=== PATIENT | male | born 1990 | race Caucasian/White ===

== ENCOUNTER 2022-06-14 08:36 | Emergency (ER) | payer OTHER, BC, SELFPAY ==
[2022-06-14 08:43] VITALS: BP 134/65; PULSE 85; RESP 18; TEMP 36.6; O2SAT 97; BMI 31.6
--- NOTE | 2022-06-14 09:01 | ED.WOUNDLAC ---
HPI - Wound/Laceration General Chief Complaint: Laceration/Wound Stated Complaint: Needs stitches in thumb Time Seen by Provider: 06/14/22 08:50 History of Present Illness HPI narrative: This patient comes in with a laceration to his left thumb. He was using a utility type knife and accidentally cut his thumb at home. He has a 2 cm linear laceration across the dorsal aspect of the left thumb. There is no sign of tendon dysfunction or nerve dysfunction. He states that he is not up-to-date on his tetanus vaccination. Related Data Allergies Allergy/AdvReac Type Severity Reaction Status Date / Time No Known Drug Allergies Allergy Verified 06/14/22 08:42 Review of Systems Status of ROS: Reports: 10 or more systems reviewed and unremarkable except as noted in History and below Narrative: Constitutional: No fevers, no weight gain or loss. Eyes: No discharge. No vision changes. HENT: No congestion, no sore throat, no ear pain. Cardiovascular: No chest pain, no palpitations. Respiratory: No shortness of breath, no wheezes, no cough. Gastrointestinal: No abdominal pain, no vomiting, no diarrhea. Genitourinary: No dysuria, no hematuria. Musculoskeletal: Normal range of motion. Skin: No rashes, no pruritis. Left thumb laceration as described above. Neurological: No dizziness, weakness, sensory change, speech change. Endo/Heme/Allergies: No bruising or bleeding. No polydipsia. Pysch: no suicidality, no anxiety, no insomnia. All other systems reviewed and are negative. Exam Narrative: Exam Narrative: Constitutional: Well-developed, well-nourished, no acute distress. HEENT: Normocephalic, atraumatic. Neck: Normal range of motion. Nontender. Supple. Heart: Intact distal pulses. Lungs: No chest discomfort. No wheezes, rhonchi, or rales. Abdomen: Nontender. Back: Normal range of motion. Extremities: Normal range of motion. 2 cm linear laceration across the dorsal aspect of the midportion of the left thumb. Skin: Intact. No rash. Warm. No erythema or pallor. Neurologic: No altered sensation. No weakness. Alert and oriented. Psychiatric: No suicidality. No anxiety or depression. No insomnia. Nursing notes and vitals signs are reviewed. Const: Vital Signs, click to edit/add: Vital Signs - 24 hr 06/14/22 08:43 Temperature 98 F Pulse Rate [Pulse Oximeter] 85 Respiratory Rate 18 Blood Pressure [Ri ght Forearm] 134/65 Pulse Oximetry 97 Oxygen Delivery Me thod Room Air Course Vital Signs Vital signs: Initial Vital Signs Temperature 98 F 06/14/22 08:43 Temperature Source Temporal Artery Scan 06/14/22 08:43 Pulse Rate 85 06/14/22 08:43 Pulse Rhythm 06/14/22 08:43 Respiratory Rate 18 06/14/22 08:43 Blood Pressure 134/65 06/14/22 08:43 Blood Pressure Mean 88 06/14/22 08:43 Blood Pressure Position Sitting 06/14/22 08:43 Pulse Oximetry 97 06/14/22 08:43 Oxygen Delivery Method 06/14/22 08:43 Vital Signs Temperature 98 F 06/14/22 08:43 Pulse Rate 85 06/14/22 08:43 Respiratory Rate 18 06/14/22 08:43 Blood Pressure 134/65 06/14/22 08:43 Pulse Oximetry 97 06/14/22 08:43 Oxygen Delivery Method 06/14/22 08:43 Temperature 98 F 06/14/22 08:43 Pulse Rate 85 06/14/22 08:43 Respiratory Rate 18 06/14/22 08:43 Blood Pressure 134/65 06/14/22 08:43 Pulse Oximetry 97 06/14/22 08:43 Oxygen Delivery Method 06/14/22 08:43 MDM - Wound/Laceration MDM Narrative Medical decision making narrative: This wound was cleansed and explored to its base. I discussed wound repair options including Dermabond and suture repair. The patient elected to have Dermabond applied. This was done with excellent results. A Band-Aid was applied followed by some Bonnie to splint the thumb somewhat while the wound heals. He received a tetanus vaccination. Discharge Plan Discharge Clinical Impression: Laceration Patient Disposition: Home, Self-Care Condition: Stable Additional Instructions: Keep wound clean and dry. Increase activity as tolerated. Follow up with MD or return if worsening. Stand Alone Forms: [facility] Info Instructions
[2022-06-14] MEDS: TETANUS/DIPHTH/PERTUSSIS 0.5 ML SYRINGE IM (09:14)
== END 2022-06-14 10:48 | disposition home or self-care (01) ==
PROVIDERS: Emergency Provider Emergency Medicine Emergency Medical Services
DX: S61.012A Laceration without foreign body of left thumb without damage to nail, initial encounter (principal); W26.0XXA Contact with knife, initial encounter
CPT/HCPCS: 12001; 90471; 90715; 99283

== ENCOUNTER 2023-07-27 11:40 | Outpatient (CLI) | payer OTHER, SELFPAY ==
--- OUTSIDE RECORDS SUMMARY | 2023-07-27 11:44 | XMS_ITS | Encounter Summary ---
Author Name Unknown Organization [facility] Address [address] [place] [address] Care Team Providers Care Asphalt Dauber Name Role Phone Unavailable Primary Care Provider Unavailabl e Reason for Visit * Reason Comments Hip Problem Encounter Details Date Type Department Care Team Description 04/24/2023 9:30 AM CDT Therapy [facility] [address] [id number] Estela Prince, PT [address] [place] [address] Muscle strain of gluteal region, left, initial encounter (Primary Dx); Impingement of left shoulder Social History Tobacco Use Types Packs/Day Years Used Date Smoking Tobacco: Never Smokeless Tobacco: Never Sex and Gender Information Value Date Recorded Sex Assigned at Not on file Gender Identity Not on file Sexual Orientation Not on file documented as of this encounter Progress Notes * Estela Prince, PT - 04/24/2023 9:30 AM CDT [facility] Physical Therapy Progress Note Visit Number: 4 Initial Certification Period: 02/12/2023 to 05/13/23 Referring Provider: No ref. provider found Visit Diagnosis: 1. Muscle strain of gluteal region, left, initial encounter 2. Impingement of left shoulder Precautions: none SUBJECTIVE: Pretty decent. His L HS is bothering him. That muscle QL on the L is bothering him again, just above his hip area. His L shoulder . He has been doing a bit more work at work lately. More heavy stuff and motors, busy busy busy. He has been slacking with his HEP, tries to stretch as much as he can. His leg stretches he has been doing still. OBJECTIVE Current Objective Findings: Flexibility: Hamstrings: Restricted Joint Mobility: WNL Palpation/Tenderness: Left quadratus lumborum, gluteus sulema, piriformis, L >R gluteus medius,greater trochanter, L >R hamstring Special Tests: Left: NICANOR: WNL FADIR: Negative SLR: Positive for hamstring tightness at ~75 degrees Right: INCANOR: WNL FADIR: Negative SLR: Positive for hamstring tightness at ~65 degrees Standing trunk flexion fingertips to distal tibia Standing extension mild loss with pinch at L5 Mild loss R SB with tightness/discomfort on L side R SB WNL Treatment/Education Today: Therapeutic exercise x 23 minutes: -assessment as above -review of HEP -QL stretch [id number] -cat/cow x10 -birddog x10 -3 way child's pose Dry needling x 16minutes: -Pt was educated on the potential benefits and risk of procedure and provided aftercare instructions -Verbal informed consent obtained. -Pt skin was prepped with use of alcohols swab -Pt was position in prone with palpation and activation used to identify the taut banding in L QL and glute max, musculature -deep palpation was used to isolate banding -direct technique was performed, using 75mm needle in a perpendicular direction, 1 needles used. -Localized muscle twitch was achieved with dry needling -Pt was position in prone with palpation and activation used to identify the taut banding in L QL and glute max, musculature -deep palpation was used to isolate banding, L shoulder: L upper trap, L supraspinatus, L infraspinatus, and teres mm -direct technique was performed, using 50mm needle in a perpendicular direction, 1 needles used. - L shoulder: L upper trap, L supraspinatus, L infraspinatus, and teres mm -Localized muscle twitch was achieved with dry needling *post tx: HS B 80 degrees no pain Standing extension WNL no pain Timed Code Treatment Minutes: 23 Total Treatment Minutes: 39 Current Home Exercise Program List: Access Code: [email or web address] URL: [email or web address] Date: 02/13/2023 Prepared by: Estela Prince Exercises - Cat Cow - 1-2 x daily - 20-30 reps - Supine Quadratus Lumborum Stretch - 1-2 x daily - 3 reps - 30sec hold - Supine Hamstring Stretch - 1-2 x daily - 3 reps - 30sec hold - Supine Bridge with Resistance Band - 1 x daily - 3 sets - 10 reps - Seated Scapular Retraction - 1-3 x daily - 20 reps - Shoulder External Rotation and Scapular Retraction with Resistance - 1 x daily - 10-20 reps - 10sec hold ASSESSMENT/PROGRESS TOWARD GOALS: Pt is a pleasant 32yo male with chronic L shoulder/neck and hip pain of unknown etiology. Pt felt great after last session, increased pain in L shoulder and hip after increased heavy work at work lately. Performed FDN and tolerated well with improved ROM after. Continue with HEP daily. Pt will benefit from skilled PT to address above limitations and improve overall pain, strength, posture and functional mobility. Functional Goals/Outcomes: HEP/Independent Management: Demonstrate independence with HEP and self- management following each treatment session Demonstrate correct posture and body mechanics without verbal cueing in 1 session. ADL's: Resume previous sleep pattern without awakening due to symptoms in 12 weeks. Transition sit to stand with normal positioning and weight bearing in 8 weeks. 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 side in 12 weeks PLAN: Dry needling, review and progress HEP documented in this encounter Plan of Treatment Upcoming Encounters Date Type Department Care Team Description 07/31/2023 9:30 AM REHAB RN Appointment [facility] [address] [address] Estela Prince, PT [address] [place], [place] [address] 08/07/2023 9:30 AM REHAB RN Appointment [facility] [address] [address] Estela Prince PT [address] [place], [place] [id number] 08/14/2023 9:30 AM REHAB RN Appointment [facility] [address] [address] [place] [address] Estela Prince, PT [address] [place] [address] 08/21/2023 9:30 AM REHAB RN Appointment [facility] [address] [address] Estela Prince, PT [address] [place], [place] [phone] documented as of this encounter Visit Diagnoses Diagnosis Muscle strain of gluteal region, left, initial encounter- Primary Impingement of left shoulder documented in this encounter
--- OUTSIDE RECORDS SUMMARY | 2023-07-27 11:44 | XMS_ITS | Encounter Summary ---
Author Name Unknown Organization [facility] Address [address] [place] [address] Care Team Providers Care Plant Science Professor Name Role Phone Unavailable Primary Care Provider Unavailabl e Reason for Referral * Therapies (Routine) - New Request Specialty Diagnoses / Procedures Referred By Bela t Referred To Contact Diagnoses Muscle strain of gluteal region, left, initial encounter Impingement of left shoulder [facility] [address] [place] [address] Referral ID Status Reason Start Date Expiration Date V isits Requested Visits Authorized [id number] New Request 02/13/2023 05/14/2024 1 1 Scheduling Instructions If scheduling assistance is needed, please inquire with the medical office staff upon exiting your appointment or contact the ordering clinic for recommended locations. This recommended service/s may not be covered by your insurance coverage. To find out your specific benefit coverage, please call the number on your insurance card. Question Answer Therapy Physical Therapy PT: Follow Up Every week How many times per week? 1 For how many weeks? 6 PT: Visit Type Follow Up PT: Type of Revisit In-Person Visit PT: Treatment Team Primary provider Waitlist? High (Urgent) Comments Ok to put in consult blocks Reason for Visit * Reason Comments Hip Problem * Therapies (Routine) - New Request Specialty Diagnoses / Procedures Referred By Contac t Referred To Contact Diagnoses Strain of gluteus medius of left lower extremity, initial encounter Impingement of left shoulder Janelle Puente, PA-C [address] [facility] [place] [address] Referral ID Status Reason Start Date Expiration Date V isits Requested Visits Authorized [id number] New Request 01/18/2023 01/18/2024 1 1 Encounter Details Date Type Department Care Team Description 02/13/2023 2:45 PM CDT Therapy [facility] [place] [address] [place] [address] Estela Prince, PT [address] [place] [address] Muscle strain of gluteal region, left, initial [...] Progress Notes * Estela Prince, PT - 02/13/2023 2:45 PM CDT [facility] Physical Therapy Hip Evaluation/Plan of Care Initial Certification Period: 02/12/2023 to 05/13/23 Referring Provider: Janelle Puente Visit Diagnosis: 1. Muscle strain of gluteal region, left, initial encounter 2. Impingement of left shoulder Precautions: None Orders: Evaluate & treat, Left shoulder impingement and biceps tendonitis. Iontophoresis. Othermodalities as appropriate. Eval and treat. Left glute medius and minimus chronic strain. Dry needling. Other modalities as appropriate. Eval and treat. Onset/Referral Date: Chronic 10-15 years, REFERRAL 01/18/23 SUBJECTIVE Reason for Visit: His whole L side is bothersome 10-15yrs. He's never been seen for it before. He is R handed. L shoulder and neck, and L back of hip and back of the thigh. His R side does bother himbut the L side is more prominent. NO previous injuries, no MVA. NO previous surgeries. L ankle sprain 1.5 years ago (missed a step). Mornings are the worst, once he starts moving it gets better. Then his mm get tired and then pain gets more. He has tried chrio and massage and that helps a little. Patient Therapy Goals:control and reduce pain. Past Medical History: Patient has no past medical history on file. There is no problem list on file for this patient. Recently Experienced (Red Flags): None Previous Treatment: chiropractic treatment, massage therapy, medications:ibuprofen prn and pain patches, and heated leather seats. Benefited from previous treatment: yes Pain details: Current pain intensity level: 7/10 Pain location: L superior shoulder and neck, L posterior hip and hamstring Sleep interruptions: Yes: a few times per night., Difficulty getting comfortable in order to sleep. 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 He has a 4 and 7yo son. No regular HEP. Patient History: Low Complexity: No personal factors or comorbidities that impact plan of care OBJECTIVE Observation: mild L lateral shift Gait Exam: lacking arm swing and trunk motion, very stiff upper body Screening: Lumbar screen: Screen: Within Normal Limits ROM: Left: normal Right: normal Trunk flexion fingertips to proximal ankles mild tightness in R>L hamstring, extension mild lossend range, SB 90 % B L>R QL pain. Strength: Left: Hip flexion: 4+/5 Flexibility: Hamstrings: Restricted Quadriceps: Normal Piriformis: Restricted QL L>R restricted HS ~45 degrees L<R Joint Mobility: WNL Palpation/Tenderness: Left quadratus lumborum, gluteus sulema, piriformis, L >R gluteus medius,greater trochanter, L >R hamstring Special Tests: Left: NICANOR: WNL FADIR: Negative SLR: Positive for hamstring tightness at ~35 degrees Right: NICANOR: WNL FADIR: Negative SLR: Positive for hamstring tightness at ~45 degrees Functional Tests: Double leg squat: knees over toes, heels off floor Physical Performance Measures: Not tested SHOULDER: ROM: Left Shoulder AROM WNL Right Shoulder AROM WNL Strength: Left Shoulder Flexion: 5/5 Extension: 4+/5 External rotation: 4+/5 Internal rotation: 5/5 Abduction: 5/5 Right Shoulder Flexion: 5/5 Extension: 4+/5 External rotation: 4+/5 Internal rotation: 5/5 Abduction: 4+/5 Neurological: Not performed Flexibility: Upper traps: Restricted, Subscapularis: Restricted, Pectoralis major: Restricted, and Pectoralis minor: Restricted Joint mobility: GH: WNL Thoracic spine: Hypomobile Palpation: Tenderness with palpation to: Left: Upper trap, Supraspinatus, Infraspinatus, Subscapularis, Cervical paraspinals, and Thoracic paraspinals Special Tests: ER Strength for impingement: Positive Functional tests: Hands behind head within normal limits. Hands behind back within normal limits. Hands on opposite shoulders within normal limits. PT - Musculoskeletal - Shoulder QuickDASH (0-100, 0 being best): 20 Clinical Examination: Moderate Complexity: Addressed 3 elements from body structures and functions (see above), and/or functional limitations as noted below. Today's Intervention/Charges: Physical Therapy Evaluation was completed and the patient was educated on the condition, planned therapy intervention and expectations from treatment. Therapeutic exercise x 24 minutes: The patient was guided through a home exercise program, including verbal and tactile cues when appropriate to facilitate good performance and targeted intervention.The purpose and intent of each exercise was explained to the patient, as well as, how to follow thegiven exercise prescription. -Instructed on proper posture and body mechanics. -encouraged to call insurance for coverage of Dry Needling (circled on handout) Access Code: [email or web address] URL: [email or web address] Date: 02/13/2023 Prepared by: Estela Prince Exercises [...] daily - 10-20 reps - 10sec hold Timed Code Treatment Minutes: 25 Total Treatment Minutes: 45 ASSESSMENT Therapist Impression/Summary: Pt is a pleasant 32yo male with chronic L shoulder/neck and hip pain of unknown etiology. Pt has a very labor intensive job, and pain has been progressing. Pt has impaired posture with mild weakness of scap and ER of B shoulders, weakness of proximal hips L>R with significant restriction of hamstrings and QL mm. Pt will benefit from skilled PT to address above limitations and improve overall pain, strength, posture and functional mobility. PT Clinical Presentation: Moderate Complexity: Evolving Clinical Presentation with changing clinical characteristics Clinical Decision Making: Moderate Complexity Recommendations/Equipment: No additional recommendations at this time Significant Impairments: Pain, Muscle tightness/decreased flexibility, Muscle weakness, Muscular imbalances, Joint hypomobility, ROM Limitation, Postural restrictions Functional Limitations: poor body mechanics, difficulty sleeping, and difficulty meeting work demands Goals/Functional Outcomes: HEP/Independent Management: Demonstrate independence with HEP and [...] pain on L side in 12 weeks Barriers to Goal Achievement or Learning: none Prognosis: Good PLAN Planned Intervention/Education: ADL/Self Management, Aquatic therapy, Dry Needling, Education, Electrical Stimulation, Gait training, Heat/ice, Iontophoresis with Dexamethasone Sodium Phosphate 4 mg/mL solution prn with procedure to reduce inflammation. Deliver 1.0mL-1.5mL through iontophoresis patc h to affected area., Manual Therapy, Mechanical Traction, Neuromuscular Re- education, TENS application/self treatment, Therapeutic Activities, Therapeutic Exercise, Ultrasound, Vasopneumatic compression Frequency: 1 x week Duration: 90 days Discharge Plan: Patient will be discharged from therapy when goals are achieved or patient plateausin progress. Informed Consent: Patient and/or family in agreement with the care plan. Plan for Next Treatment: Dry needling, review and progress HEP The dimmer board operator is completed by the therapist and the referring clinician's electronic signature certifies medical necessity for the plan above. documented in this encounter Plan of Treatment Upcoming Encounters Date Type Department Care Team Description 07/31/2023 9:30 AM SENIOR LINUX SYSTEMS ADMINISTRATOR Appointment [facility] [address] [address] Estela Prince, PT [address] [place] [address] 08/07/2023 9:30 AM SENIOR LINUX SYSTEMS ADMINISTRATOR Appointment [facility] [address] [address] Estela Prince, PT [address] [place], [place] [address] 08/14/2023 9:30 AM SENIOR LINUX SYSTEMS ADMINISTRATOR Appointment [facility] [address] [address] Estela Prince, PT [address] [place], [place] [address] 08/21/2023 9:30 AM SENIOR LINUX SYSTEMS ADMINISTRATOR Appointment [facility] [address] [address] Estela Prince, PT [address] [place] [address] Scheduled Referrals Name Type Priority Associated Diagnoses Orde r Schedule Rehab Therapies Follow Up Referral Routine Muscle strain of gluteal region, left, initial encounter Impingement of left shoulder Ordered: 02/13/2023 documented as of this encounter Visit Diagnoses Diagnosis Muscle strain of gluteal region, left, initial encounter- Primary Impingement of left shoulder documented in this encounter
--- OUTSIDE RECORDS SUMMARY | 2023-07-27 11:44 | XMS_ITS | Encounter Summary ---
Author Name Unknown Organization [facility] Address [address], [place] [address] Care Team Providers Care Engraving Plate Maker Name Role Phone Unavailable Primary Care Provider Unavailabl e Reason for Visit * Reason Comments Hip Problem Encounter Details Date Type Department Care Team Description 05/08/2023 9:30 AM CIRCUIT DESIGN ENGINEER Therapy [facility] [address] [phone] Estela Prince, PT [address] [place] [address] Muscle strain of gluteal region, left, initial [...] Progress Notes * Estela Prince, PT - 05/08/2023 9:[address] [facility] Services Physical Therapy Progress Note Visit Number: 5 Initial Certification Period: 02/12/2023 to 05/13/23 Referring Provider: No ref. provider found Visit Diagnosis: 1. Muscle strain of gluteal region, left, initial encounter 2. Impingement of left shoulder Precautions: none SUBJECTIVE: Pretty good, a couple tight spots, mainly the same areas. He's been strteching, can't find a chair low enough so needs to figure that out. That one spot on his back is still pretty tight. OBJECTIVE Current Objective Findings: Flexibility: Hamstrings: L 75 degrees, R 60 degrees Joint Mobility: WNL Palpation/Tenderness: Left quadratus lumborum, L>R piriformis, L >R gluteus medius, 4+/5 proximal glute MM B Treatment/Education Today: Therapeutic exercise x 18 minutes: -assessment as above -review of HEP -piriformis stretch [id number] - Figure 4 Bridge - x20 reps - Squat against wall with cues for core and posture Neuro re-ed: 10min -core isometrics -core marching x15 -modified side plank [id number] (L side harder) Dry needling x 10 minutes: -Pt was educated on the potential benefits and risk of procedure and provided aftercare instructions -Verbal informed consent obtained. -Pt skin was prepped with use of alcohols swab -Pt was position in R sidelying with palpation and activation used to identify the taut banding in L glute max, glute med musculature -deep palpation was used to isolate banding -direct technique was performed, using 60mm needle in a perpendicular direction, 1 needles used. -Localized muscle twitch was achieved with dry needling Hamstrings: L 90 degrees, R 80 degrees *post tx Standing extension WNL no pain Timed Code Treatment Minutes: 28 Total Treatment Minutes: 38 Current Home Exercise Program List: Access Code: [email or web address] URL: [email or web address] Date: 05/08/2023 Prepared by: Estela Prince Exercises - Cat Cow - 1-2 x daily - 20-30 reps - Supine Quadratus Lumborum Stretch - 1-2 x daily - 3 reps - 30sec hold - Supine Piriformis Stretch with Leg Straight - 1 x daily - 7 x weekly - 3 reps - 30sec hold - Supine Hamstring Stretch - 1-2 x daily - 3 reps - 30sec hold - Seated Scapular Retraction - 1-3 x daily - 20 reps - Shoulder External Rotation and Scapular Retraction with Resistance - 1 x daily - 10-20 reps - 10sec hold - Figure 4 Bridge - 3-5 x weekly - 3 sets - 10 reps - Squat with Chair Touch and Resistance Loop - 3-5 x weekly - 3 sets - 10 reps - Forward T with Counter Support - 3-5 x weekly - 3 sets - 10 reps ASSESSMENT/PROGRESS TOWARD GOALS: Pt reports much improved HS soreness but ROM improved, mild weakness of proximal glutes. Progressed exercises and tolerated well, updated [employer]. Resolved L glute pain after FDN. Pt will benefit from skilled PT to [...] PLAN: Dry needling, review and progress HEP UIT DESIGN ENGINEER documented in this encounter Plan of Treatment Upcoming Encounters Date Type Department Care Team Description 07/31/2023 9:30 AM CIRCUIT DESIGN ENGINEER Appointment [facility] [address] [address] Estela Prince, PT [address] [place], [place] [phone] 08/07/2023 9:30 AM CIRCUIT DESIGN ENGINEER Appointment [facility] [address] [address] Estela Prince, PT [address] [place], [place] [address] 08/14/2023 9:30 AM CIRCUIT DESIGN ENGINEER Appointment [facility] [address] [address] Estela Prince, PT [address] [place] [address] 08/21/2023 9:30 AM CIRCUIT DESIGN ENGINEER Appointment [facility] [address] [address] Estela Prince, PT [address] [place], [place] [address] documented as of this encounter Visit Diagnoses Diagnosis Muscle strain of gluteal region, left, initial encounter- Primary Impingement of left shoulder documented in this encounter
--- OUTSIDE RECORDS SUMMARY | 2023-07-27 11:44 | XMS_ITS | Encounter Summary ---
Author Name Unknown Organization [facility] Address [address] [place] [address] Care Team Providers Care Ice Cream Maker Name Role Phone Unavailable Primary Care Provider Unavailabl e Reason for Visit * Reason Comments Hip Problem Encounter Details Date Type Department Care Team Description 07/18/2023 9:30 AM PUBLIC AREA SUPERVISOR Therapy [facility] [address] [phone] Estela Prince, PT [address] [place] [address] Muscle strain of gluteal region, left, initial [...] Progress Notes * Estela Prince, PT - 07/18/2023 9:30 AM CST [facility] Services Physical Therapy Progress Note Visit Number: 9 Re-certification Period: 05/14/23 to 08/14/22 Initial Certification Period: 02/12/2023 to 05/13/23 Referring Provider: Janelle Puente Visit Diagnosis: 1. Muscle strain of gluteal region, left, initial encounter 2. Impingement of left shoulder Precautions: none SUBJECTIVE: He's a little tight. He stepped wrong yesterday and slipped on some ice and caught himself- tight along the left side of the spine. Otherwise feeling pretty good. [place] good after last time. Work is pretty slow. OBJECTIVE Current Objective Findings: Mild loss R SB with discomfort in L paraspinals, mild discomfort with flexion but WNL Flexibility: Hamstrings: L 80 degrees, R 70 degrees Joint Mobility: WNL Palpation/Tenderness: Left lumbar paraspinals Treatment/Education Today: Neuro re-ed: 30min -Fascial counterstrain to decompress tissues and the chemical source of pain of targeted pain receptors: -flexed L5 periosteum - L4-5 ALL and PLL - lumbar epidurals Therapeutic exercise: 10min - review of HEP and current status -cat/cow x20 -birddog [id number] each Hamstrings: L 80 degrees, R 80 degrees *post tx Standing extension WNL no pain, mild loss R SB with L QL stretch Timed Code Treatment Minutes: 40 Total Treatment Minutes: 40 Current Home Exercise Program List: Access Code: [email or web address] URL: [email or web address] Date: 05/08/2023 Prepared by: Estela Prince Exercises [...] 10 reps ASSESSMENT/PROGRESS TOWARD GOALS: Pt reports less restriction through L lumbar region since last session, sore after slipping on ice yesterday. Performed fascial counterstain and tolerated well with improved mobility after. Encouraged to drink plenty of water and resume HEP tomorrow. Pt will benefit from skilled PT to address above limitations and improve overall pain, strength, posture and functional mobility. Functional Goals/Outcomes: HEP/Independent Management: Demonstrate independence with HEP and self- management following each treatment session met Demonstrate correct posture and body mechanics without verbal cueing in 1 session. In progress ADL's: Resume previous sleep pattern without awakening due to symptoms in 12 weeks. improving Transition sit to stand with normal positioning and weight bearing in 8 weeks. met 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 side in 12 weeks in progress PLAN: FCS, review and progress HEP IC AREA SUPERVISOR documented in this encounter Plan of Treatment Upcoming Encounters Date Type Department Care Team Description 07/31/2023 9:30 AM PUBLIC AREA SUPERVISOR Appointment [facility] [address] [address] Estela Prince, PT [address] [place] [address] 08/07/2023 9:30 AM PUBLIC AREA SUPERVISOR Appointment [facility] [address] [address] sEtela Prince, PT [address] [place] [address] 08/14/2023 9:30 AM PUBLIC AREA SUPERVISOR Appointment [facility] [address] [address] Estela Prince, PT [address] [place] [address] 08/21/2023 9:30 AM PUBLIC AREA SUPERVISOR Appointment [facility] [address] [address] Estela Prince, PT [address] [place] [address] documented as of this encounter Visit Diagnoses Diagnosis Muscle strain of gluteal region, left, initial encounter- Primary Impingement of left shoulder documented in this encounter
--- OUTSIDE RECORDS SUMMARY | 2023-07-27 11:44 | XMS_ITS | Encounter Summary ---
Author Name Unknown Organization [facility] Address [address] [place] [address] Care Team Providers Care Aircraft Electrical Systems Specialist Name Role Phone Unavailable Primary Care Provider Unavailabl e Encounter Details Date Type Department Care Team Description 05/21/2018 Correspondence None No Primary/Referring, Phy HEARING QUESTIONNAIRE Social History Tobacco Use Types Packs/Day Years Used Date Smoking Tobacco: Never Assessed Sex and Gender Information Value Date Recorded Sex Assigned at Not on file Gender Identity Not on file Sexual Orientation Not on file documented as of this encounter Plan of Treatment Upcoming Encounters Date Type Department Care Team Description 07/31/2023 9:30 AM FUEL INJECTION SERVICER Appointment [facility] [address] [address] Estela Prince, PT [address] [place] [address] 08/07/2023 9:30 AM FUEL INJECTION SERVICER Appointment [facility] [address] [address] Estela Prince, PT [address] [place] [address] 08/14/2023 9:30 AM FUEL INJECTION SERVICER Appointment [facility] [address] [address] Estela Prince, PT [address] [place] [address] 08/21/2023 9:30 AM FUEL INJECTION SERVICER Appointment [facility] [address] [address] Estela Prince, PT [address] [place] [address] documented as of this encounter Visit Diagnoses Not on filedocumented in this encounter
--- OUTSIDE RECORDS SUMMARY | 2023-07-27 11:44 | XMS_ITS | Encounter Summary ---
Author Name Unknown Organization [facility] Address [address] [address] Care Team Providers Care Building Services Technician Name Role Phone Unavailable Primary Care Provider Unavailabl e Reason for Visit * Reason Comments Hip Problem Encounter Details Date Type Department Care Team Description 05/01/2023 10:15 AM SPECIAL LOAN OFFICER Therapy [facility] [address] [phone] Estela Prince, PT [address] [place] [address] Muscle strain of gluteal region, left, initial [...] Progress Notes * Estela Prince, PT - 05/01/2023 10:15 AM CST [facility] Services Physical Therapy Progress Note Visit Number: 4 Initial Certification Period: 02/12/2023 to 05/13/23 Referring Provider: Janelle Puente Visit Diagnosis: 1. Muscle strain of gluteal region, left, initial encounter 2. Impingement of left shoulder Precautions: none SUBJECTIVE: Pretty decent, shoulder is way better. His HS are bothering him. Work has been really hard lately and cramming himself into small spaces, underneath things. OBJECTIVE Current Objective Findings: Flexibility: Hamstrings: L 75 degrees, R 60 degrees Joint Mobility: WNL Palpation/Tenderness: Left quadratus lumborum, gluteus sulema, piriformis, L >R gluteus medius,greater trochanter, L >R hamstring 4+/5 proximal glute MM B Treatment/Education Today: Therapeutic exercise x 38 minutes: -assessment as above -review of HEP -figure 4 stretch [id number] B Figure 4 Bridge - 3 sets - 10 reps - Squat with Chair Touch and Resistance Loop -1 sets - 10 reps - Forward T with Counter Support - 2sets - 10 reps- cues for proper mechanics Hamstrings: L 90 degrees, R 80 degrees *post tx Standing extension WNL no pain Timed Code Treatment Minutes: 38 Total Treatment Minutes: 38 Current Home Exercise Program List: Access Code: [email or web address] URL: [email or web address] Date: 05/01/2023 Prepared by: Estela Prince Exercises - Cat Cow - 1-2 x daily - 20-30 reps - Supine Quadratus Lumborum Stretch - 1-2 x daily - 3 reps - 30sec hold - Supine Hamstring Stretch - 1-2 x daily - 3 reps - 30sec hold - Supine Figure 4 Piriformis Stretch - 1 x daily - 7 x [...] ASSESSMENT/PROGRESS TOWARD GOALS: Pt reports much improved shoulder pain, HS soreness but ROM improved, mild weakness of proximal glutes. Progressed exercises and tolerated well, updated [place]. Pt will benefit from skilled PT to [...] PLAN: Dry needling, review and progress HEP IAL LOAN OFFICER documented in this encounter Plan of Treatment Upcoming Encounters Date Type Department Care Team Description 07/31/2023 9:30 AM SPECIAL LOAN OFFICER Appointment [facility] [address] [address] Estela Prince, PT [address] [place] [address] 08/07/2023 9:30 AM SPECIAL LOAN OFFICER Appointment [facility] [address] [address] [place] [address] [place] [address] 08/14/2023 9:30 AM SPECIAL LOAN OFFICER Appointment [facility] [address] [address] Estela Prince, PT [address] [place] [address] 08/21/2023 9:30 AM SPECIAL LOAN OFFICER Appointment [facility] [address] [address] Estela Prince, PT [address] [place] [address] documented as of this encounter Visit Diagnoses Diagnosis Muscle strain of gluteal region, left, initial encounter- Primary Impingement of left shoulder documented in this encounter
--- OUTSIDE RECORDS SUMMARY | 2023-07-27 11:44 | XMS_ITS | Encounter Summary ---
Author Name Unknown Organization [facility] Address [address] [place] [address] Care Team Providers Care Fence Post Cutter Name Role Phone Unavailable Primary Care Provider Unavailabl e Encounter Details Date Type Department Care Team Description 05/31/2018 Correspondence [facility] [address] [facility], [address] [place] [address] Dennis Varghese MD [address] [place], [place] [phone] HEARING CONSERVATION REPORT Social History Tobacco Use Types Packs/Day Years Used Date Smoking Tobacco: Never Assessed Sex and Gender Information Value Date Recorded Sex Assigned at Not on file Gender Identity Not on file Sexual Orientation Not on file documented as of this encounter Plan of Treatment Upcoming Encounters Date Type Department Care Team Description 07/31/2023 9:30 AM STAIN REMOVER Appointment [facility] [address] [address] Estela Prince, PT [address] [place] [address] 08/07/2023 9:30 AM STAIN REMOVER Appointment [facility] [address] [address] Estela Prince, PT [address] [place], [place] [address] 08/14/2023 9:30 AM STAIN REMOVER Appointment [facility] [address] [place] [address] Estela Prince, PT [address] [place], [place] [address] 08/21/2023 9:30 AM STAIN REMOVER Appointment [facility] [place] [id number] [place] [address] Estela Prince, PT [address] [place], [place] [address] documented as of this encounter Visit Diagnoses Not on filedocumented in this encounter
--- OUTSIDE RECORDS SUMMARY | 2023-07-27 11:44 | XMS_ITS | Encounter Summary ---
Author Name Unknown Organization [facility] Address [address] [place] [address] Care Team Providers Care Lift Truck Operator Name Role Phone Unavailable Primary Care Provider Unavailabl e Reason for Visit * Reason Comments Hip Problem Encounter Details Date Type Department Care Team Description 07/04/2023 9:30 AM MGMT CONSULTANT Therapy [facility] [place] [id number] [place] [phone] Estela Prince, PT [address] [place] [address] Muscle strain of gluteal region, left, initial [...] Progress Notes * Estela Prince, PT - 07/04/2023 9:30 AM CST Physical Therapy Re-certification of Plan of Care Re-certification Period: 05/14/23 to 08/14/22 Treatment diagnosis: same Total visits in past certification period: 6 Updated status: see below Current servin objective findings: see below ASSESSMENT/PROGRESS TOWARD GOALS: Progress toward goals/functional outcomes: see below Updated goals/functional outcomes for re-certification period: see below PLAN: Frequency/duration: 1-2 time/week for 12 weeks Treatment Plan: continue with current POC Consent: Patient and/or family are in agreement with the updated plan. The knife setter grinder machine is completed by the therapist and the referring clinician's electronic signature certifies medical necessity for the plan above. [facility] Services Physical Therapy Progress Note Visit Number: 7 Initial Certification Period: 02/12/2023 to 05/13/23 Referring Provider: Janelle Puente Visit Diagnosis: 1. Muscle strain of gluteal region, left, initial encounter 2. Impingement of left shoulder Precautions: none SUBJECTIVE: Pretty good, everything is getting tight again. He does the stretches and he gets to a certain point and he just can't go any farther. It's the same spot. He can touch it and theres a little lump there. His L ankle feels tight too. His L shoulder/neck is too. Doing the HEP 3x/wk, the majority of exercises, not all. OBJECTIVE Current Objective Findings: Flexibility: Hamstrings: L 75 degrees, R 60 degrees Joint Mobility: WNL Palpation/Tenderness: Left quadratus lumborum, L>R piriformis, L >R gluteus medius, 4+/5 proximal glute MM B Flexed L5 periosteum with TTP Treatment/Education Today: Therapeutic activities x 8 minutes: -assessment as above -review of HEP Neuro re-ed: 23min -Fascial counterstrain to decompress tissues and the chemical source of pain of targeted pain receptors: -flexed L5 periosteum type 2- related to scar over cranial dave scan from 15 years ago. -L5 epidurals Manual therapy: 10min Fascial counterstrain to decompress tissues and the chemical source of pain of targeted pain receptors: Lumbar flexed spinal veins Hamstrings: L 90 degrees, R 90 degrees *post tx Standing extension WNL no pain Timed Code Treatment Minutes: 41 Total Treatment Minutes: 41 Current Home Exercise Program List: Access Code: [email or web address] URL: [email or web address] Date: 05/08/2023 Prepared by: Estela rPince Exercises - Cat Cow - 1-2 x [...] 10 reps ASSESSMENT/PROGRESS TOWARD GOALS: Pt reports compliance to HEP about 3x/wk, still feeling it through L buttocks/QL region, L5. Performed fascial counterstain and tolerated well with resolved L LE Sx and improved mobility after. Encouraged to drink plenty [...] progress PLAN: FCS, review and progress HEP CONSULTANT documented in this encounter Plan of Treatment Upcoming Encounters Date Type Department Care Team Description 07/31/2023 9:30 AM MGMT CONSULTANT Appointment [facility] [address] [address] Estela Prince, PT [address] [place] [address] 08/07/2023 9:30 AM MGMT CONSULTANT Appointment [facility] [address] [address] Estela Prince, PT [address] [place] [address] 08/14/2023 9:30 AM MGMT CONSULTANT Appointment [facility] [address] [address] Estela Prince, PT [address] [place] [address] 08/21/2023 9:30 AM MGMT CONSULTANT Appointment [facility] [address] [address] Estela Prince, PT [address] [place] [address] documented as of this encounter Visit Diagnoses Diagnosis Muscle strain of gluteal region, left, initial encounter- Primary Impingement of left shoulder documented in this encounter
--- OUTSIDE RECORDS SUMMARY | 2023-07-27 11:44 | XMS_ITS | Encounter Summary ---
Author Name Unknown Organization [facility] Address [address] [place] [address] Care Team Providers Care Clip Riveter Name Role Phone Unavailable Primary Care Provider Unavailabl e Reason for Visit * Reason Comments Hip Problem Encounter Details Date Type Department Care Team Description 04/03/2023 9:30 AM CDT Therapy [facility] [address] [phone] Estela Prince, PT [address] [place] [address] Muscle strain of gluteal region, left, initial [...] Progress Notes * Estela Prince, PT - 04/03/2023 9:30 AM CDT [facility] Physical Therapy Progress Note Visit Number: 2 Initial Certification Period: 02/12/2023 to 05/13/23 Referring Provider: No ref. provider found Visit Diagnosis: 1. Muscle strain of gluteal region, left, initial encounter 2. Impingement of left shoulder Precautions: none SUBJECTIVE: He's been doing the HEP, but he just can't get past a certain point with HS, it just stops. Still just tight. His shoulders with the bands really helps, feels much better when he does that. Insurance will cover up to 4 appts of Dry Needling. OBJECTIVE Current Objective Findings: Flexibility: Hamstrings: Restricted Quadriceps: Normal Piriformis: Restricted QL L>R restricted HS ~45 degrees L<R Joint Mobility: WNL Palpation/Tenderness: Left quadratus lumborum, gluteus sulema, piriformis, L >R gluteus medius,greater trochanter, L >R hamstring Special Tests: Left: NICANOR: WNL FADIR: Negative SLR: Positive for hamstring tightness at ~50 degrees Right: NICANOR: WNL FADIR: Negative SLR: Positive for hamstring tightness at ~60 degrees Standing trunk flexion fingertips to distal tibia Standing extension mild loss with pinch at L5 Mild loss R SB with tightness/discomfort on L side R SB WNL Treatment/Education Today: Therapeutic exercise x 25 minutes: -assessment as above -review of HEP -LTR x20 -bridge [id number] -prone Repeated extentions x10 -cat/cow x20 -quadruped hip ext x10 Dry needling x 12 minutes: -Pt was educated on the potential benefits and risk of procedure and provided aftercare instructions -Verbal informed consent obtained. -Pt skin was prepped with use of alcohols swab -Pt was position in sidelying with palpation and activation used to identify the taut banding in L QL and glute max musculature -deep palpation was used to isolate banding -direct technique was performed, using 60mm needle in a perpendicular direction, 1 needles used. -Localized muscle twitch was achieved with dry needling Pt was position in prone with palpation and activation used to identify the taut banding in B lumbar parapsinals - palpation was used to isolate banding -direct technique was performed, using 50mm needle in a perpendicular direction, 1 needles used. -Localized muscle twitch was achieved with dry needling *post tx: standing trunk flexion fingertips to floow Standing extension WNL no pain Timed Code Treatment Minutes: 37 Total Treatment Minutes: 37 Current Home Exercise Program List: Access Code: [email or web address] URL: [email or web address] Date: 02/13/2023 Prepared by: Estela Prince Exercises [...] intensive job, and pain has been progressing. Has been compliant most of the time with HEP and does have improved ROM and less L shoulder pain. Performed FDN and tolerated well with resolved sharp LBP and improved ROM after. Pt will benefit from skilled PT to [...] Department Care Team Description 07/31/2023 9:30 AM NUTRITION ASSOCIATE Appointment [facility] [address] [address] Estela Prince PT [address] [place] [address] 08/07/2023 9:30 AM NUTRITION ASSOCIATE Appointment [facility] [address] [address] Estela Prince PT [address] [place] [address] 08/14/2023 9:30 AM NUTRITION ASSOCIATE Appointment [facility] [address] [address] Estela Prince, PT [address] [place] [address] 08/21/2023 9:30 AM NUTRITION ASSOCIATE Appointment [facility] [address] [phone] Estela Prince, PT [address] [place] [address] documented as of this encounter Visit Diagnoses Diagnosis Muscle strain of gluteal region, left, initial encounter- Primary Impingement of left shoulder documented in this encounter
--- OUTSIDE RECORDS SUMMARY | 2023-07-27 11:44 | XMS_ITS | Encounter Summary ---
Author Name Unknown Organization [facility] Address [address] [address] Care Team Providers Care Technical Instructor Course Developer Name Role Phone Unavailable Primary Care Provider Unavailabl e Reason for Visit * Reason Comments Hip Problem Encounter Details Date Type Department Care Team Description 07/24/2023 11:00 AM CANDLE MAKER Therapy [facility] [address] [id number] Estela Prince, PT [address] [place] [address] Muscle strain of gluteal region, left, initial [...] Progress Notes * Estela Prince, PT - 07/24/2023 11:00 AM CST [facility] Physical Therapy Progress Note Visit Number: 9 Re-certification Period: 05/14/23 to 08/14/22 Initial Certification Period: 02/12/2023 to 05/13/23 Referring Provider: Janelle Puente Visit Diagnosis: 1. Muscle strain of gluteal region, left, initial encounter 2. Impingement of left shoulder Precautions: none SUBJECTIVE: He was ok after last session. 2 days later he had to run a mile and then walk back with 2 5 gallonsof gas. And then helping his friend work on his car and in awkward positions. Lower back is ok, butknees lower legs and L ankle are bothering. Tender in shins, left back of shoulder into neck is theworst of it. OBJECTIVE Current Objective Findings: Mild loss R SB with discomfort in L paraspinals, mild discomfort with flexion but WNL Flexibility: Hamstrings: L 75 degrees, R 70 degrees Joint Mobility: WNL Palpation/Tenderness: Left cervicothoracic paraspinals, L medial scap Treatment/Education Today: Neuro re-ed: 30min -Fascial counterstrain to decompress tissues and the chemical source of pain of targeted pain receptors: -flexed C5-6 periosteum - L cervicothoracic ALLs - cervical epidurals Manual therapy: 15min Fascial counterstrain to decompress tissues and the chemical source of pain of targeted pain receptors: -axillary vein, INOM-V, scap-v Hamstrings: L 80 degrees, R 80 degrees *post tx Reduced tension in L shoulder and scap, full cervicothoracic ROM Timed Code Treatment Minutes: 45 Total Treatment Minutes: 45 Current Home Exercise Program List: Access Code: [email or web address] URL: [email or web address] Date: 05/08/2023 Prepared by: Estela Prince Exercises [...] 10 reps ASSESSMENT/PROGRESS TOWARD GOALS: Pt reports lumbar spine has been good, but he injured his L shoulder and L>R legs are sore and tight after weekend activities. Performed fascial counterstain and tolerated well with improved pain and mobility after. Encouraged to drink plenty of [...] progress PLAN: FCS, review and progress HEP LE MAKER documented in this encounter Plan of Treatment Upcoming Encounters Date Type Department Care Team Description 07/31/2023 9:30 AM CANDLE MAKER Appointment [facility] [address] [address] Estela Prince, PT [address] [place] [address] 08/07/2023 9:30 AM CANDLE MAKER Appointment [facility] [address] [address] Estela Prince, PT [address] [place] [address] 08/14/2023 9:30 AM CANDLE MAKER Appointment [facility] [address] [address] Estela Prince, PT [address] [place] [address] 08/21/2023 9:30 AM CANDLE MAKER Appointment [facility] [address] [address] Estela Prince, PT [address] [place] [address] documented as of this encounter Visit Diagnoses Diagnosis Muscle strain of gluteal region, left, initial encounter- Primary Impingement of left shoulder documented in this encounter
--- OUTSIDE RECORDS SUMMARY | 2023-07-27 11:44 | XMS_ITS | Encounter Summary ---
Author Name Unknown Organization [facility] Address [address] [place] [address] Care Team Providers Care Scale Manager Name Role Phone Unavailable Primary Care Provider Unavailabl e Reason for Visit * Reason Comments Hip Problem Encounter Details Date Type Department Care Team Description 04/10/2023 9:30 AM CDT Therapy [facility] [address] [id number] Estela Prince, PT [address] [place] [address] Muscle strain of gluteal region, left, initial [...] Progress Notes * Estela Prince, PT - 04/10/2023 9:[address] [facility] Physical Therapy Progress Note Visit Number: 3 Initial Certification Period: 02/12/2023 to 05/13/23 Referring Provider: No ref. provider found Visit Diagnosis: 1. Muscle strain of gluteal region, left, initial encounter 2. Impingement of left shoulder Precautions: none SUBJECTIVE: He felt good after last session. No bruising or pain after last session. Still feels pretty good, tightening up a little bit again. Rested for 1 day but then more active after. His mid back and L hipand HS area are bothering him. Lower back has been really good. He has been doing the stretches, but it's only been a week. OBJECTIVE Current Objective Findings: Flexibility: Hamstrings: Restricted [...] SB WNL Treatment/Education Today: Therapeutic exercise x 30 minutes: -assessment as above -review of HEP -bridge x20 -QL stretch [id number] -cat/cow x20 -birddog x20 -3 way child's pose Dry needling x 12 minutes: -Pt was educated on the potential benefits and risk of procedure and provided aftercare instructions -Verbal informed consent obtained. -Pt skin was prepped with use of alcohols swab -Pt was position in sidelying with palpation and activation used to identify the taut banding in L QL and glute max, glute med musculature -deep palpation was used to isolate banding -direct technique was performed, using 60mm needle in a perpendicular direction, 1 needles used. -Localized muscle twitch was achieved with dry needling *post tx: standing trunk flexion fingertips to floow Standing extension WNL no pain Timed Code Treatment Minutes: 30 Total Treatment Minutes: 42 Current Home Exercise Program List: Access Code: [email or web address] URL: [email or web address] Date: 02/13/2023 Prepared by: Estela Prince Exercises [...] etiology. Pt felt great after last session, able to do his stretches and HEP better. Performed FDN and tolerated well with improved ROM after. Continue with HEP adding 3 way child's pose. Pt will benefit from skilled PT to [...] Department Care Team Description 07/31/2023 9:30 AM LAUNDRY PRESSER Appointment [facility] [address] [address] Estela Prince, PT [address] [place] [address] 08/07/2023 9:30 AM LAUNDRY PRESSER Appointment [facility] [address] [address] Estela Prince, PT [address] [place] [address] 08/14/2023 9:30 AM LAUNDRY PRESSER Appointment [facility] [address] [address] Estela Prince, PT [address] [place] [address] 08/21/2023 9:30 AM LAUNDRY PRESSER Appointment [facility] [address] [address] Estela Prince, PT [address] [place] [address] documented as of this encounter Visit Diagnoses Diagnosis Muscle strain of gluteal region, left, initial encounter- Primary Impingement of left shoulder documented in this encounter
--- OUTSIDE RECORDS SUMMARY | 2023-07-27 11:44 | XMS_ITS | Encounter Summary ---
Author Name Unknown Organization [facility] Address [address] [place] [address] Care Team Providers Care Algebraist Name Role Phone Unavailable Primary Care Provider Unavailabl e Reason for Visit * Reason Comments Hip Problem Encounter Details Date Type Department Care Team Description 07/11/2023 9:30 AM CLOTH MERCERIZING SUPERVISOR Therapy [facility] [address] [id number] Estela Prince, PT [address] [place] [address] Muscle strain of gluteal region, left, initial [...] Progress Notes * Estela Prince, PT - 07/11/2023 9:30 AM CST [facility] Physical Therapy Progress Note Visit Number: 8 Re-certification Period: 05/14/23 to 08/14/22 Initial Certification Period: 02/12/2023 to 05/13/23 Referring Provider: Janelle Puente Visit Diagnosis: 1. Muscle strain of gluteal region, left, initial encounter 2. Impingement of left shoulder Precautions: none SUBJECTIVE: Pretty good since last time. Definitely an improvement. A little tightness on L when he moves side to side. He can move through the stretches, but still a little painful on the L buttocks/hip. OBJECTIVE Current Objective Findings: Mild loss R SB with discomfort in L QL Flexibility: Hamstrings: L 80 degrees, R 70 degrees Joint Mobility: WNL Palpation/Tenderness: Left quadratus lumborum, Treatment/Education Today: Neuro re-ed: 25min L ashlee stretch -Fascial counterstrain to decompress tissues and the chemical source of pain of targeted pain receptors: -flexed L5 periosteum type 2- related to scar over cranial dave scan from 15 years ago. -L4-5 medullaries type 2 Manual therapy: 20min Fascial counterstrain to decompress tissues and the chemical source of pain of targeted pain receptors: - spinal radciularmedullary arteries. -medial fascia mamie left, -SF Hamstrings: L 80 degrees, R 80 degrees *post tx Standing extension WNL no pain, mild loss R SB with L QL stretch Timed Code Treatment Minutes: 45 Total Treatment Minutes: 45 Current Home Exercise Program List: Access Code: [email or web address] URL: [email or web address] Date: 05/08/2023 Prepared by: Estela Prince Exercises [...] through L lumbar region since last session, still tight and sore limiting his R SB ROM. Performed fascial counterstain and tolerated well with [...] progress PLAN: FCS, review and progress HEP H MERCERIZING SUPERVISOR documented in this encounter Plan of Treatment Upcoming Encounters Date Type Department Care Team Description 07/31/2023 9:30 AM CLOTH MERCERIZING SUPERVISOR Appointment [facility] [address] [address] Estela Prince, PT [address] [place] [address] 08/07/2023 9:30 AM CLOTH MERCERIZING SUPERVISOR Appointment [facility] [address] [address] Estela Prince, PT [address] [place] [address] 08/14/2023 9:30 AM CLOTH MERCERIZING SUPERVISOR Appointment [facility] [address] [address] Estela Prince, PT [address] [place] [address] 08/21/2023 9:30 AM CLOTH MERCERIZING SUPERVISOR Appointment [facility] [address] [address] Estela Prince, PT [address] [place] [address] documented as of this encounter Visit Diagnoses Diagnosis Muscle strain of gluteal region, left, initial encounter- Primary Impingement of left shoulder documented in this encounter
--- OUTSIDE RECORDS SUMMARY | 2023-07-27 11:44 | XMS_ITS | Encounter Summary ---
Author Name Unknown Organization [facility] Address [address] [place] [address] Care Team Providers Care Home Energy Inspector Name Role Phone Unavailable Primary Care Provider Unavailabl e Reason for Referral * Therapies (Routine) - New Request Specialty Diagnoses / Procedures Referred By Bela loera Referred To Contact Diagnoses Strain of gluteus medius of left lower extremity, initial encounter Impingement of left shoulder Janelle Puente PA-C [address] [place] [address] Referral ID Status Reason Start Date Expiration Date V isits Requested Visits Authorized [id number] New Request 01/18/2023 01/18/2024 1 1 Scheduling Instructions Your clinician has recommended an appointment with [facility]. You can quickly make your appointment online at Docracy/schedule. You can also call [phone] for help scheduling your appointment. We suggest you call your health insurance company about your coverage and benefits for this appointment. Question Answer Appointment Urgency? Non-Urgent Requested Services Evaluate and treat May use saline for irrigation or cleansing Yes dexamethasone use Yes May check glucose per protocol (see policy link below) or if patient has symptoms? Yes Comments Left shoulder impingement and biceps tendonitis. Iontophoresis. Other modalities as appropriate. Eval and treat. Left glute medius and minimus chronic strain. Dry needling. Other modalities as appropriate. Eval and treat. Reason for Visit * Reason Comments HIP PAIN Left posterior hip/b ack, ongoing, Encounter Details Date Type Department Care Team Description 01/18/2023 8:00 AM CDT [facility] [address] [place] [address] Janelle Puente PA-C [address] [facility] [address] [place] [address] Strain of gluteus medius of left lower extremity, initial encounter (Primary Dx); Impingement of left shoulder Social History Tobacco Use Types Packs/Day Years Used Date Smoking Tobacco: Never Smokeless Tobacco: Never Sex and Gender Information Value Date Recorded Sex Assigned at Not on file Gender Identity Not on file Sexual Orientation Not on file documented as of this encounter Last Filed Vital Signs Vital Sign Reading Time Taken Comments Blood Pressure - - Pulse - - Temperature - - Respiratory Rate - - Oxygen Saturation - - Inhaled Oxygen Concentration - - Weight 95.3 kg (210 lb) 01/18/2023 8:16 AM CDT Height 180.3 cm (5' 11) 01/18/2023 8:16 AM CDT Body Mass Index 29.29 01/18/2023 8:16 AM CDT documented in this encounter Patient Instructions * Patient Instructions* Janelle Puente PA-C - 01/18/2023 8:00 AM CDT You can do all of this together: 1000mg Tylenol up to 3 times a day as needed for pain. 600mg ibuprofen every 6 hours as needed for pain, especially before activity. Rub Voltaren Gel/Diclofenac Gel (topical antiinflammatory) over the affected joint up to 4 times a day. Ice for 20 minutes 3-4 times a day, especially after activity. Do not take multiple NSAIDs at the same time. Meaning pick one and stick with that one. They work the same in the body and can cause kidney trouble if you take too much. Examples of NSAIDs: ibuprofen, Motrin, Advil, Naproxen, Aleve, Toradol, Celebrex. It is not recommended to take NSAIDs when also on a blood thinner. documented in this encounter Progress Notes * Janelle Puente PA-C - 01/18/2023 8:00 AM CDT Subjective: Chief Complaint Left Hip and Shoulder Pain Ananth Orona is a 32 y.o. male presenting for evaluation and treatment of left hip and shoulder pain. Left hip: He reports onset of pain many years ago that has been progressing more recently. He complains of achy and throbbing pain along the superior aspect of his buttock that worsens with yard work, activity, walking, and bending over. He denies swelling, bruising, numbness, and tingling. He is utilizing ibuprofen as needed. Left shoulder: He feels like his shoulder catches at end point ROM. This is not painful but the sensation is uncomfortable. No swelling, bruising, numbness, or tingling. Past Medical History, Past Surgical History, Social History, and Family Medical History was reviewed and updated as appropriate. A complete review of systems was reviewed per the intake sheet and negative except as noted in HPI. No Known Allergies Objective: General : alert, cooperative, no distress, appears stated age Gait: Normal. The patient can bear weight on the injured extremity. Skin: Clean, dry, intact. No rashes or lesions. Left Lower Extremity Hip Palpation: no tenderness over the greater trochanter Hip ROM: Full motion. Hip Strength: Negative trendelenburg. Full strength hip abduction, flexion, and extension. Left Shoulder: Catching with active motion around 150 degrees flexion, but able to get to 170. + belly press, lift off, edwards, neer, and speeds. Full strength. Pain with external resistance and jobes. TTP biceps tendon. Assessment: Left gluteal imbalance/strain Left shoulder impingement Plan: We discussed the diagnosis and treatment options. We opted to move forward with physical therapy. Iprovided OTC pain management recommendations. He will see me back in 3 months if he is still havingtroubles. Patient verbalized understanding and agreement to our treatment plan. All of his questions were answered to his satifaction. Janelle Puente PA-C documented in this encounter Plan of Treatment Upcoming Encounters Date Type Department Care Team Description 07/31/2023 9:30 AM FOOD SERVICE EMPLOYEE Appointment [facility] [address] [address] Estela Prince, PT [address] [place] [address] 08/07/2023 9:30 AM FOOD SERVICE EMPLOYEE Appointment [facility] [address] [address] Estela Prince, PT [address] [place] [address] 08/14/2023 9:30 AM FOOD SERVICE EMPLOYEE Appointment [facility] [address] [address] [place] [address] [place] [address] 08/21/2023 9:30 AM FOOD SERVICE EMPLOYEE Appointment [facility] Physical Therapy [address] [address] [place] [address] [place] [id number] Scheduled Referrals Name Type Priority Associated Diagnoses Orde r Schedule Physical Therapy Referral Routine Strain of gluteus medius of left lower extremity, initial encounter Impingement of left shoulder Ordered: 01/18/2023 documented as of this encounter Visit Diagnoses Diagnosis Strain of gluteus medius of left lower extremity, initial encounter- Primary Impingement of left shoulder documented in this encounter
--- OUTSIDE RECORDS SUMMARY | 2023-07-27 11:44 | XMS_ITS | Clinical Summary ---
Author Name Unknown Organization [facility] Address [address] [place] [address] Care Team Providers Care Snow Maker Name Role Phone Unavailable Primary Care Provider Unavailabl e Source Comments You are receiving this document as you are listed as the primary care provider,follow-up provider, or the patient has been referred to you for consultation.This is in compliance with the Medicare and[facility] EHR Incentive Program,which states Providers who transition their patient to another setting of careor provider of care or refers their patient to another provider of care shouldprovide summary care record for each transition of care or referral. [facility] Allergies No known active allergies Medications No known medications Encounters Date Type Department Care Team Description 07/24/2023 11:00 AM CASHIER Therapy [facility] [address] [address] Estela Prince, PT Muscle strain of gluteal region, left, initial encounter (Primary Dx); Impingement of left shoulder 07/18/2023 9:30 AM CASHIER Therapy [facility] [address] [address] Estela Prince, PT Muscle strain of gluteal region, left, initial encounter (Primary Dx); Impingement of left shoulder 07/11/2023 9:30 AM CASHIER Therapy [facility] [address] [address] Estela Prince, PT Muscle strain of gluteal region, left, initial encounter (Primary Dx); Impingement of left shoulder 07/04/2023 9:30 AM CASHIER Therapy [facility] [address] [address] Estela Prince, PT Muscle strain of gluteal region, left, initial encounter (Primary Dx); Impingement of left shoulder 05/08/2023 9:30 AM CASHIER Therapy [facility] Physical [address] [address] Estela Prince, PT Muscle strain of gluteal region, left, initial encounter (Primary Dx); Impingement of left shoulder 05/01/2023 10:15 AM CASHIER Therapy [facility] Physical [address] [address] Estela Prince, PT Muscle strain of gluteal region, left, initial encounter (Primary Dx); Impingement of left shoulder from Last 3 Months Immunizations Name Administration Dates Next Due DTP 05/21/1990,06/14/1989,03/29/1989 Hib (ActHIB) 05/21/1990 MMR 02/15/1990 OPV, Trivalent (Orimune or tOPV) 05/21/1990,05/26,03/29/1989 Social History Tobacco Use Types Packs/Day Years Used Date Smoking Tobacco: Never Smokeless Tobacco: Never Tobacco Cessation:Counseling Given: Not Answered Sex and Gender Information Value Date Recorded Sex Assigned at Not on file Gender Identity Not on file Sexual Orientation Not on file Last Filed Vital Signs Vital Sign Reading Time Taken Comments Blood Pressure 125/77 01/12/2022 10:22 AM CDT Pulse 85 01/12/2022 10:22 AM CDT Temperature 36.7 ??C (98 ??F) 01/12/2022 10:22 AM CDT Respiratory Rate 16 01/12/2022 10:22 AM CDT Oxygen Saturation 99% 01/12/2022 10:22 AM CDT Inhaled Oxygen Concentration - - Weight 95.3 kg (210 lb) 01/18/2023 8:16 AM CDT Height 180.3 cm (5' 11) 01/18/2023 8:16 AM CDT Body Mass Index 29.29 01/18/2023 8:16 AM CDT Plan of Treatment Upcoming Encounters Date Type Department Care Team Description 07/31/2023 9:30 AM CASHIER Appointment [facility] Physical [address] [place] [address] Estela Prince, PT [address] [place], [place] [address] 08/07/2023 9:30 AM CASHIER Appointment [facility] [address] [address] Estela Prince, PT [address] [place], [place] [address] 08/14/2023 9:30 AM CASHIER Appointment [facility] [address] [address] Estela Prince, PT [address] [place], [place] [address] 08/21/2023 9:30 AM CASHIER Appointment [facility] [address] [address] Estela Prince, PT [address] [place], [place] [address] Health Maintenance Due Date Last Done Comments Hep C Screening (Preventive Services) 1988 HepB (1) 1988 COVID-19 Vaccine (#1) 05/18/1989 HIV Screening (Preventive Services) 2004 Adult Preventive Visit 2006 Influenza (#1) 2023 DTaP/Tdap/Td (7 - Tdap) 06/14/2032 06/14/20, 03/18/2013, 12/14/2003, Additional history exists Zoster/Shingles (1 of 2) 2038 Hib Completed 05/21/1990 IPV (Polio) Completed 12/20/1994, 04/26, 06/14/1989, Additional history exists HPV Vaccine Aged Out No longer eligi ble based on patient's age to complete this topic HepA Aged Out No longer eligi ble based on patient's age to complete this topic MCV4 Aged Out No longer eligi ble based on patient's age to complete this topic Pneumococcal Aged Out No longer eligi ble based on patient's age to complete this topic
== END 2023-07-27 11:41 | disposition home or self-care (01) ==
PROVIDERS: PCP Family Medicine; Visit Provider Family Medicine
DX: Z00.00 Encounter for general adult medical examination without abnormal findings (principal); Z13.1 Encounter for screening for diabetes mellitus; Z13.6 Encounter for screening for cardiovascular disorders
CPT/HCPCS: 80048; 80061

== ENCOUNTER 2024-10-22 13:42 | Outpatient (CLI) | payer OTHER, SELFPAY ==
--- NOTE | 2024-10-22 14:00 | CRLHL7_ITS ---
For Patients: As a result of the Century Cures Act, medical imaging exams and procedure reports are released immediately into your electronic medical record. You may view this report before your referring provider. If you have questions, please contact your health care provider. INDICATION: Chronic sinusitis. TECHNIQUE: High-resolution CT images of the paranasal sinuses were obtained. Multiplanar reconstructions. FINDINGS: Frontal: The frontal air cells are clear with the exception of minimal mucosal thickening in the right inferior frontal recess. Ethmoid: Ethmoid air cells are clear bilaterally. Sphenoid: The sphenoid air cells are clear and the sphenoid ethmoidal recesses are patent bilaterally. Maxillary: There is asymmetric mild mucosal thickening in the right inferior maxillary antrum measuring 5 mm or less. Minimal focal mucosal thickening at the base the left maxillary antrum. Bilateral ostiomeatal units are patent. Nasal fossa: Minimal convex right nasal septal curve nasal fossa is otherwise unremarkable. Nasopharynx unremarkable. Mastoid air cells grossly clear. IMPRESSION: 1. Mild focal mucosal thickening noted in the inferior maxillary sinuses (right greater than left) and in the right inferior frontal recess. 2. Patent bilateral ostiomeatal units. Please note that all CT scans at this facility use dose modulation, iterative reconstruction, and/or weight-based dosing when appropriate to reduce radiation dose to as low as reasonably achievable. Dictated by Lane Matamoros MD @ 10/22/2024 4:09:00 PM (Electronically Signed)
== END 2024-10-22 13:43 | disposition home or self-care (01) ==
LOC: CT 13:44
PROVIDERS: PCP Family Medicine; Visit Provider Otolaryngology
DX: J32.9 Chronic sinusitis, unspecified (principal); J32.0 Chronic maxillary sinusitis
CPT/HCPCS: 70486